=== PATIENT | male | born 1980 | race American Indian/Alaskan Native ===

== ENCOUNTER 2022-03-05 05:32 | Emergency (ER) | payer SELFPAY ==
[2022-03-05 09:32] LABS: Color,Urine Dark Yellow (Yellow)
[2022-03-05 09:35] LABS: Ictotest,Urine Positive (Negative)
[2022-03-05 09:45] LABS: RBC,Urine < 1.0 /HPF (0.0-6.0); WBC,Urine < 1.0 /HPF (0.0-6.0)
[2022-03-05] MEDS ORDERED: SODIUM CHLORIDE 0.9% 1000 ML 1,000 ML IV ONE (09:46)
[2022-03-05] MEDS ORDERED: KETOROLAC 30 MG/1 ML INJ IV ONE (09:46)
--- NOTE | 2022-03-05 09:54 | Emergency Department Report ---
ED Male HPI - General Chief complaint: Urogenital-Male Stated complaint: KIDNEY ISSUES Time Seen by Provider: 03/05/22 09:49 Source: patient Mode of arrival: Ambulatory Limitations: No Limitations - History of Present Illness Initial comments: 42-year-old male presenting with kidney issues. Patient reports pain in his left kidney times couple of days ago . Patient reports symptoms progressively worse, reports urinary frequency, with chills. No vomiting, no hematuria, no fever, no chest pain, no fall or injury, no abdominal pain. -: Gradual Location: left flank Radiation: none Severity: severe Severity scale (0 -10): 10 Quality: sharp Improves with: none Worsens with: none fever. denies: denies other symptoms, discharge, swelling, blood in urine, nausea/vomiting, incontinence - Related Data Previous Rx's Medication Instructions Recorded Last Taken Type Ibuprofen [Motrin 600 MG tab] 600 mg PO Q8H PRN #20 tablet 03/05/22 Unknown Rx Allergies Allergy/AdvReac Type Severity Reaction Status Date / Time No Known Allergies Allergy Unverified 03/05/22 05:38 ED Review of Systems ROS: Stated complaint: KIDNEY ISSUES Other details as noted in HPI Constitutional: no symptoms reported Eyes: as per HPI Respiratory: denies: cough, orthopnea Cardiovascular: denies: chest pain, palpitations Gastrointestinal: denies: abdominal pain, nausea, vomiting, diarrhea Genitourinary: frequency. denies: urgency, dysuria, discharge Musculoskeletal: back pain Neurological: denies: headache, weakness ED Past Medical Hx - Social History Smoking Status: Never Smoker Substance Use Type: Cocaine - Medications Home Medications: Home Medications Medication Instructions Recorded Confirmed Last Taken Type Ibuprofen [Motrin 600 MG tab] 600 mg PO Q8H PRN #20 tablet 03/05/22 Unknown Rx ED Physical Exam - General Limitations: No Limitations General appearance: alert, in no apparent distress - Head Head exam: Present: atraumatic - ENT ENT exam: Present: normal exam, normal orophraynx - Neck Neck exam: Present: normal inspection - Respiratory Respiratory exam: Present: normal lung sounds bilaterally - Cardiovascular Cardiovascular Exam: Present: regular rate, tachycardia - GI/Abdominal GI/Abdominal exam: Present: soft, tenderness - Extremities Exam Extremities exam: Present: normal inspection, full ROM - Back Exam Back exam: Present: CVA tenderness (L) - Neurological Exam Neurological exam: Present: alert, oriented X3 - Psychiatric Psychiatric exam: Present: normal affect, normal mood - Skin Skin exam: Present: warm, dry, intact ED Course Vital Signs 03/05/22 05:37 Temperature 98.6 F Pulse Rate 129 H Respiratory 18 Rate Blood Pressure 145/101 O2 Sat by Pulse 95 Oximetry - Reevaluation(s) Reevaluation #1: 03/05/22 12:46 Delaying disposition labs still not resulted. Patient appears Much comfortable at this time 1400 Still awaiting CBC results with 1447-call the lab still awaiting CBC result billing disposition. Otherwise patient is stable ED Medical Decision Making - Lab Data Result diagrams: 03/05/22 11:02 03/05/22 12:35 - Radiology Data Left adrenal nodule, periumbilical ventral hernia containing fat without obstruction f - Medical Decision Making 42-year-old male presenting with kidney issues. Patient reports pain in his left kidney times couple of days ago . Patient reports symptoms progressively worse, reports urinary frequency, with chills. No vomiting, no hematuria, no fever, no chest pain, no fall or injury, no abdominal pain. His labs are reassuring, his CT scan is also reassuring, patient has new left adrenal nodule, and a periumbilical ventral hernia without any signs of incarceration. Or obstruction. No acute findings on his CT, he has been rehydrated with IV fluids, during ED course his vitals have improved, he is afebrile, and he Ordered a box of pizza while waiting it is finished eating it without any vomiting pain. Discharge patient home with supportive therapy, follow-up, and referral. Patient remained stable nontoxic-appearing, afebrile, ambulating steadily without assistance. Gone over ED findings with patient as well as plan for follow-up. Also discussed return precautions with patient, all questions and concerns addressed. Patient is stable to be discharged follow-up outpatient. Audio voice dictation device used, hence the chart might contain some dictation errors, mispronunciations, wrong spelling and wrong verbiage. Critical care attestation.: If time is entered above; I have spent that time in minutes in the direct care of this critically ill patient, excluding procedure time. ED Disposition Clinical Impression: Flank pain, Adrenal nodule, Periumbilical hernia Disposition: HOME / SELF CARE / HOMELESS Is pt being admited?: No Does the pt Need Aspirin: No Condition: Stable Instructions: Flank Pain, Adult, [id number], Hernia, Adult, [id number] Additional Instructions: You have a nodule on your left adrenal gland that needs further evaluation. I have referred you outpatient to establish care for further evaluation imaging. Prescriptions: Ibuprofen [Motrin 600 MG tab] 600 mg PO Q8H PRN #20 tablet PRN Reason: Pain Referrals: KYM MARSHALL MD [Staff Physician] - 3-5 Days VALDEMAR MILLARD DO [Staff Physician] - 3-5 Days
[2022-03-05 12:19] LABS: Blood Urea Nitrogen TNR mg/dL (9-20)
[2022-03-05 12:20] LABS: Alanine Aminotransferase TNR units/L (7-56); Albumin TNR g/dL (3.9-5); BUN/Creatinine Ratio TNR; Calcium TNR mg/dL (8.4-10.2)
[2022-03-05 12:21] LABS: Hemolysis Index TNR
[2022-03-05 13:12] LABS: Albumin 4.8 g/dL (3.9-5); Calcium 9.4 mg/dL (8.4-10.2)
--- NOTE | 2022-03-05 14:38 | Cat Scan Report ---
CT ABDOMEN AND PELVIS WITH CONTRAST INDICATION / CLINICAL INFORMATION: flank pain, hematuria. TECHNIQUE: Axial CT images were obtained through the abdomen and pelvis after IV contrast. All CT sc ans at this location are performed using CT dose reduction for ALARA by means of automated exposure c ontrol. COMPARISON: None available. FINDINGS: LOWER CHEST: Bibasilar subsegmental atelectasis. LIVER: No significant abnormality. GALLBLADDER: No significant abnormality. BILE DUCTS: No significant abnormality. PANCREAS: No significant abnormality. SPLEEN: No significant abnormality. ADRENALS: Left adrenal nodule measures 1.4 x 1.3 cm on image 2. RIGHT KIDNEY / URETER: No significant abnormality. LEFT KIDNEY / URETER: No significant abnormality. STOMACH / SMALL BOWEL: No significant abnormality. COLON: No significant abnormality. APPENDIX: No significant abnormality. PERITONEUM: No free fluid. No free air. No fluid collection. LYMPH NODES: No significant adenopathy. AORTA / ARTERIES: No significant abnormality. IVC / VEINS: No significant abnormality. URINARY BLADDER: No significant abnormality. REPRODUCTIVE ORGANS: No significant abnormality. ADDITIONAL FINDINGS: Periumbilical hernia defect measures 3.9 cm on image 97 series 2 and contains no nobstructed loops of small bowel. Multiple other smaller supraumbilical ventral hernia defects. SKELETAL SYSTEM: No significant abnormality. IMPRESSION: 1. No acute abnormality, specifically no hydronephrosis or nephrolithiasis. 2. Periumbilical ventral hernia containing nonobstructed small bowel. 3. Indeterminate left adrenal nodule. Recommend further evaluation with adrenal protocol CT. Signer Name: Tomas Park MD Signed: 03/05/2022 2:33 PM Workstation Name: [id number]
[2022-03-05 15:33] LABS: Hematocrit 42.6 % (35.5-45.6); Hemoglobin 13.9 gm/dl (11.8-15.2); Mean Corpuscular HGB Conc 33 % (32-34); Mean Corpuscular Volume 95 fl (84-94); Platelet Count 202 K/mm3 (140-440); Red Blood Count 4.48 M/mm3 (3.65-5.03)
[2022-03-05 16:47] VITALS: BP 133/80
== END 2022-03-05 16:49 | disposition home or self-care (01) ==
LOC: ED 05:32
DX: K42.9 Umbilical hernia without obstruction or gangrene (principal); E27.9 Disorder of adrenal gland, unspecified; F14.90 Cocaine use, unspecified, uncomplicated; Z79.899 Other long term (current) drug therapy
CPT/HCPCS: 36415; 74177; 80053; 81001; 82962; 85027; 87086; 96361; 96374; 99284; J1885; J7030; Q9967